=== PATIENT | female | born 1985 | race African-American/Black ===

== ENCOUNTER 2020-02-14 14:07 | Emergency (ER) | payer OTHER ==
[2020-02-14 14:31] VITALS: TEMP 97.7
[2020-02-14] MEDS ORDERED: IBUPROFEN 600 MG TAB PO STA (14:44)
[2020-02-14] MEDS ORDERED: CIPROFLOXACIN-DEXAMETH 0.3-0.1% DROPS 7.5 ML BTL BOTH EARS STA (14:44)
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
[2020-02-14 16:14] VITALS: BP 124/66; PULSE 92; RESP 16
== END 2020-02-14 17:35 | disposition home or self-care (01) ==
LOC: EC 14:07
DX: T74.21XA Adult sexual abuse, confirmed, initial encounter (principal); H60.93 Unspecified otitis externa, bilateral; F17.200 Nicotine dependence, unspecified, uncomplicated; Z88.0 Allergy status to penicillin; Z98.890 Other specified postprocedural states; Y07.9 Unspecified perpetrator of maltreatment and neglect
CPT/HCPCS: 99284